=== PATIENT | male | born 1945 | race Caucasian/White ===

== ENCOUNTER → 2018-01-05 07:10 | Outpatient (CLI) | payer MEDICARE, OTHER, SELFPAY ==
[2018-01-05 11:24] LABS: Anion Gap 8 (5-15); BUN 9 mg/dL (7-18); Calcium,Total 9.1 mg/dL (8.5-10.1); Chloride 96 mmol/L (98-107); Cholesterol 220 mg/dL (200); Creatinine, Serum 0.64 mg/dL (0.70-1.30); EST Glomerular Filtration Rate 129 mL/min (>60); Est Glom Filt Rate - Afr Amer 156 mL/min (>60); Glucose 80 mg/dL (74-106); High Density Lipoprotein 94 mg/dL; PSA,Total - Annual Screen 0.79 ng/mL (0.00-4.00); Potassium 4.6 mmol/L (3.5-5.1); Sodium Level 133 mmol/L (136-145); Triglycerides 58 mg/dL; Very Low Density Lipoprotein 12 mg/dL (5-40)
== END ==
PROVIDERS: Family Provider Family Medicine; PCP Family Medicine; Visit Provider Family Medicine
DX: I10 Essential (primary) hypertension (principal); E78.00 Pure hypercholesterolemia, unspecified; Z12.5 Encounter for screening for malignant neoplasm of prostate
CPT/HCPCS: 36415; 80048; 80061; 84153; G0103

== ENCOUNTER 2018-11-07 17:57 | Emergency (ER) | payer MEDICARE, OTHER, SELFPAY ==
[2018-11-07 18:00] VITALS: BP 164/95; PULSE 84; RESP 18; TEMP 36.6; O2SAT 97; BMI 26.6
--- NOTE | 2018-11-07 18:48 | RAD_ITS ---
STUDY: X-RAY - RIGHT KNEE REASON FOR EXAM: Male, 73 years old. Pain, swelling TECHNIQUE: 4 view(s) of the knee. COMPARISON: None. FINDINGS: Normal visualized distal femur. Normal visualized proximal tibia and fibula. Normal proximal tibiofibular articulation. Mild spurring and narrowing at the medial femorotibial compartment. Mild spurring at the lateral femorotibial compartment. Normal patellofemoral articulation. There is a moderate suprapatellar effusion. The soft tissue structures are unremarkable. RAD/Knee 4 or More Views IMPRESSION: Effusion and degenerative changes of the knee. Electronically Signed: Guru Ronquillo DO at 19:17 EDT Tel [phone], Service support ,
--- NOTE | 2018-11-07 18:52 | US_ITS ---
STUDY: VENOUS DOPPLER ULTRASOUND - RIGHT LOWER EXTREMITY REASON FOR EXAM: Male, 73 years old. Pain TECHNIQUE: Ultrasound evaluation of the deep vein system to include vanegas-scale imaging and compression was performed. Vanegas-scale imaging and Doppler sonographic evaluation, including duplex spectral analysis and qualitative color flow sonography, was performed. COMPARISON: None. FINDINGS: Common Femoral Vein: Normal compression, spontaneity and augmentation. Normal color Doppler. Common Femoral Vein/Greater Saphenous Junction: Normal compression. Femoral Proximal: Normal compression. Femoral Middle: Normal compression, spontaneity and augmentation. Normal color Doppler. Femoral Distal: Normal compression. Popliteal Vein: Normal compression, spontaneity and augmentation. Normal color Doppler. Posterior Tibial Vein: Normal compression. Peroneal Vein: Normal compression. US/Venous Duplex Imag/Limited/Uni IMPRESSION: Normal venous Doppler ultrasound of the lower extremity. Electronically Signed: Guru Ronquillo DO at 19:55 EDT Tel [phone], Service support ,
[2018-11-07] MEDS: HYDROcodone Bitartrate/Apap 5/325 Tablet PO (19:02)
--- NOTE | 2018-11-07 19:46 | ED.DCSUM_ITS ---
- ER Visit Summary Date of Service: 11/07/18 Chief Complaint: Right knee pain History of Present Illness: The patient is a 73 M with chronic right knee pain secondary to arthritis. He states he wears a compression sleeve. Today pain worsened and his knee was more swollen. He does not remember a specific injury. Physical Examination: Blood pressure is 164/95, otherwise vitals unremarkable. Head neck examination is normal. Heart is regular rate and rhythm. Lung sounds are clear. Abdomen is soft nontender. Right lower extremity examination was mild edema and tenderness over the proximal lateral portion of the right knee. There is a superficial abrasion patient states his compression sleeve rubs. There is minimal tenderness at the joint line. He has normal range of motion. He has strong distal pulses and normal sensation. Test Results: Right knee x-rays reveal joint effusion and degenerative changes. Venous ultrasound shows no DVT. Emergency Department Course and Treatment: Patient was given 1 tab of [place] here. Test results discussed with patient and at bedside. Patient does not have evidence of an acute knee infection. He will be treated with a 4-day course of prednisone for inflammation and advised to follow with his primary care physician or orthopedics. Treatment Plan: [] Disposition: Discharge Impression: Right knee sprain This note was generated with [employer] dictation software. It may contain incorrect words, spelling, and punctuation that were not noted in review of the chart prior to signing ED Disposition - Plan for ED Patient: Disposition: Home or Assisted Living Instructions: ED Effusion Knee Prescriptions: predniSONE tablet 40 mg PO DAILY #10 tablet Referrals: Leif Herr MD [Primary Care Provider] - Saúl Perkins DO [STAFF PHYSICIAN] - 1-2 Weeks
[2018-11-07 19:57] VITALS: BP 161/86; PULSE 70; RESP 15; O2SAT 98
== END 2018-11-07 20:00 | disposition home or self-care (01) ==
PROVIDERS: Emergency Provider Emergency Medicine; Family Provider Family Medicine; PCP Family Medicine
DX: S83.91XA Sprain of unspecified site of right knee, initial encounter (principal); R60.0 Localized edema; M17.11 Unilateral primary osteoarthritis, right knee; I10 Essential (primary) hypertension; Z79.899 Other long term (current) drug therapy; X58.XXXA Exposure to other specified factors, initial encounter; Y93.9 Activity, unspecified; Y92.89 Other specified places as the place of occurrence of the external cause; Y99.8 Other external cause status
CPT/HCPCS: 73564; 93971; 99283

== ENCOUNTER → 2019-01-05 | Outpatient (CLI) | payer MEDICARE, OTHER, SELFPAY ==
[2019-01-05 10:44] LABS: Anion Gap 8 (5-15); BUN 8 mg/dL (7-18); BUN/Creat Ratio 12.3 RATIO (10-20); Calcium,Total 8.9 mg/dL (8.5-10.1); Chloride 97 mmol/L (98-107); Cholesterol 232 mg/dL (200); Creatinine, Serum 0.65 mg/dL (0.70-1.30); EST Glomerular Filtration Rate 127 mL/min (>60); Est Glom Filt Rate - Afr Amer 154 mL/min (>60); Glucose 87 mg/dL (74-106); High Density Lipoprotein 100 mg/dL; Potassium 4.9 mmol/L (3.5-5.1); Sodium Level 132 mmol/L (136-145); Triglycerides 78 mg/dL; Very Low Density Lipoprotein 16 mg/dL (5-40)
== END | disposition home or self-care (01) ==
LOC: MTLAB 06:56
PROVIDERS: Family Provider Family Medicine; PCP Family Medicine; Referring Provider Family Medicine; Visit Provider Family Medicine
DX: I10 Essential (primary) hypertension (principal); E78.00 Pure hypercholesterolemia, unspecified; Z12.5 Encounter for screening for malignant neoplasm of prostate
CPT/HCPCS: 36415; 80048; 80061; 84153; G0103

== ENCOUNTER → 2019-09-14 | Outpatient (CLI) | payer MEDICARE, OTHER, SELFPAY ==
[2019-09-14 09:19] LABS: Bacteria 0 SEEN /hpf (None Seen); Mucous, Urine 0 SEEN /hpf (<or=2+); Red Blood Cells-Urine 0 SEEN /hpf (0-5); Squamous Epithelial Cells - UA 0 SEEN /hpf (0-5)
[2019-09-14 10:27] LABS: Absolute Neutrophil Count 4.9 X10^3/uL (2.0-7.7); Basophil# 0.04 X10^3/uL; Basophil% 0.6 % (0-1); Eosinophils% 1.4 % (0-5); Hematocrit 37.9 % (40-54); Hemoglobin 13.3 g/dL (13.0-16.5); Lymphocyte % 20.2 % (19-41); Mean Corp Hgb Conc 35.1 g/dL (32-36); Mean Corpuscular Hgb 34.9 pg (27.0-32.0); Mean Corpuscular Volume 99.5 fL (80-94); Mean Platelet Vol. 10.2 fl (6.2-12.0); Monocyte# 0.49 X10^3/uL; Monocyte% 7.1 % (0-10); NRBC Flagged by Analyzer 0 % (0-5); Neutrophil # 4.86 X10^3/uL (2.7-7.7); Neutrophil % 70.1 % (47-70); Platelet Count 276 K/mm3 (150-450); RBC Distribution Width CV 12.2 % (11.6-14.6); RBC Distribution Width SD 44.5 fl (35.1-43.9); Red Blood Count 3.81 M/mm3 (4.6-6.2); White Blood Count 6.9 K/mm3 (4.4-11.0)
[2019-09-14 11:02] LABS: Vitamin B12 1256 pg/mL (211-911); Vitamin D,25 Hydroxy 49.8 ng/mL (29.95-100.01)
[2019-09-14 11:36] LABS: ALB/GLOB Ratio 1.1 RATIO (0.9-2.4); AST(SGOT) 17 U/L (15-37); Alanine Aminotransfer ALT/SGPT 24 U/L (16-61); Albumin, Serum 3.7 g/dL (3.2-5.0); Alkaline Phosphatase 65 U/L (45-117); Anion Gap 5 (5-15); BUN 10 mg/dL (7-18); BUN/Creat Ratio 10.8 RATIO (10-20); Calcium,Total 8.9 mg/dL (8.5-10.1); Chloride 101 mmol/L (98-107); Cholesterol 204 mg/dL (200); Creatinine, Serum 0.93 mg/dL (0.70-1.30); EST Glomerular Filtration Rate 84 mL/min (>60); Est Glom Filt Rate - Afr Amer 102 mL/min (>60); Globulin 3.5 g/dL (2.2-4.2); Glucose 92 mg/dL (74-106); High Density Lipoprotein 83 mg/dL; Protein, Total 7.2 g/dL (6.4-8.2); Sodium Level 132 mmol/L (136-145); Thyroid Stim Hormone (TSH) 2.55 uIU/mL (0.358-3.74); Triglycerides 87 mg/dL; Very Low Density Lipoprotein 17 mg/dL (5-40)
[2019-09-14 12:43] LABS: Color, Urine Yellow (Yellow); Glucose, Dipstick Normal (Normal); Ketone-Dipstick 5 mg/dl (Negative); Leukocyte Esterase-Dipstick 25 /ul (Negative); Nitrite-Dipstick Negative (Negative); Occult Blood-Urine Negative /ul (Negative); Protein-Dipstick 15 mg/dl (Negative); Specific Gravity, Urine 1.025 (1.002-1.030); Urine Bilirubin Dipstick Negative (Negative); Urine Clarity Sl. Cloudy (Clear); Urine Urobilinogen 1 mg/dl (Normal)
[2019-09-14 13:00] LABS: White Blood Cells 0-5 SEEN /hpf (0-5)
[2019-09-18 17:01] LABS: Vitamin B1, Thiamine 108.6 nmol/L (66.5-200.0)
== END | disposition home or self-care (01) ==
PROVIDERS: PCP Family Medicine; Referring Provider Family Medicine; Visit Provider Family Medicine
DX: E55.9 Vitamin D deficiency, unspecified (principal); I10 Essential (primary) hypertension; E78.00 Pure hypercholesterolemia, unspecified; F10.10 Alcohol abuse, uncomplicated
CPT/HCPCS: 36415; 80053; 80061; 81001; 82306; 82607; 82746; 84425; 84443; 85025

== ENCOUNTER → 2020-04-01 | Outpatient (CLI) | payer MEDICARE, OTHER, SELFPAY ==
[2020-04-01 10:44] LABS: Absolute Lymphocyte Count 1.54 X10^3/uL (0.83-4.51); Absolute Neutrophil Count 3.7 X10^3/uL (2.0-7.7); Basophil# 0.05 X10^3/uL; Basophil% 0.8 % (0-1); Eosinophil# 0.14 X10^3/uL; Eosinophils% 2.3 % (0-5); Hematocrit 39.5 % (40-54); Hemoglobin 13.6 g/dL (13.0-16.5); Lymphocyte # 1.54 X10^3/ul (4.0); Lymphocyte % 25.5 % (19-41); Mean Corp Hgb Conc 34.4 g/dL (32-36); Mean Corpuscular Hgb 34.3 pg (27.0-32.0); Mean Corpuscular Volume 99.5 fL (80-94); Mean Platelet Vol. 10.7 fl (6.2-12.0); Monocyte# 0.56 X10^3/uL; Monocyte% 9.3 % (0-10); NRBC Flagged by Analyzer 0 % (0-5); Neutrophil # 3.72 X10^3/uL (2.7-7.7); Neutrophil % 61.6 % (47-70); Platelet Count 283 K/mm3 (150-450); RBC Distribution Width CV 12.1 % (11.6-14.6); RBC Distribution Width SD 44.7 fl (35.1-43.9); Red Blood Count 3.97 M/mm3 (4.6-6.2)
[2020-04-01 10:49] LABS: Vitamin D,25 Hydroxy 43.8 ng/mL
[2020-04-01 11:05] LABS: ALB/GLOB Ratio 1.1 RATIO (0.9-2.4); AST(SGOT) 18 U/L (15-37); Alanine Aminotransfer ALT/SGPT 25 U/L (16-61); Albumin, Serum 3.6 g/dL (3.2-5.0); Alkaline Phosphatase 66 U/L (45-117); Anion Gap 6 (5-15); BUN 8 mg/dL (7-18); BUN/Creat Ratio 10.4 RATIO (10-20); Calcium,Total 8.5 mg/dL (8.5-10.1); Chloride 99 mmol/L (98-107); Creatinine, Serum 0.77 mg/dL (0.70-1.30); EST Glomerular Filtration Rate 104 mL/min (>60); Est Glom Filt Rate - Afr Amer 126 mL/min (>60); Globulin 3.4 g/dL (2.2-4.2); Glucose 75 mg/dL (74-106); Potassium 4.6 mmol/L (3.5-5.1); Sodium Level 132 mmol/L (136-145)
== END | disposition home or self-care (01) ==
LOC: MTLAB 07:33
PROVIDERS: PCP Family Medicine; Referring Provider Family Medicine; Visit Provider Family Medicine
DX: E55.9 Vitamin D deficiency, unspecified (principal); I10 Essential (primary) hypertension
CPT/HCPCS: 36415; 80053; 82306; 85025

== ENCOUNTER → 2020-09-18 07:22 | Outpatient (CLI) | payer MEDICARE, OTHER, SELFPAY ==
[2020-09-18 10:09] LABS: Absolute Lymphocyte Count 1.35 X10^3/uL (0.83-4.51); Absolute Neutrophil Count 2.9 X10^3/uL (2.0-7.7); Basophil# 0.05 X10^3/uL; Eosinophil# 0.09 X10^3/uL; Eosinophils% 1.9 % (0-5); Hematocrit 46.2 % (40-54); Hemoglobin 15.7 g/dL (13.0-16.5); Lymphocyte # 1.35 X10^3/ul (4.0); Lymphocyte % 27.8 % (19-41); Mean Corpuscular Volume 103.1 fL (80-94); Mean Platelet Vol. 11.4 fl (6.2-12.0); Monocyte# 0.42 X10^3/uL; Monocyte% 8.6 % (0-10); NRBC Flagged by Analyzer 0 % (0-5); Neutrophil # 2.93 X10^3/uL (2.7-7.7); Neutrophil % 60.3 % (47-70); Platelet Count 252 K/mm3 (150-450); RBC Distribution Width SD 49.8 fl (35.1-43.9); Red Blood Count 4.48 M/mm3 (4.6-6.2); White Blood Count 4.9 K/mm3 (4.4-11.0)
[2020-09-18 11:14] LABS: ALB/GLOB Ratio 1.1 RATIO (0.9-2.4); AST(SGOT) 19 U/L (15-37); Alanine Aminotransfer ALT/SGPT 28 U/L (16-61); Albumin, Serum 3.9 g/dL (3.2-5.0); Alkaline Phosphatase 67 U/L (45-117); Anion Gap 6 (5-15); BUN 8 mg/dL (7-18); BUN/Creat Ratio 10.1 RATIO (10-20); Chloride 103 mmol/L (98-107); Cholesterol 211 mg/dL (200); Creatinine, Serum 0.79 mg/dL (0.70-1.30); EST Glomerular Filtration Rate 101 mL/min (>60); Est Glom Filt Rate - Afr Amer 122 mL/min (>60); Globulin 3.5 g/dL (2.2-4.2); Glucose 83 mg/dL (74-106); High Density Lipoprotein 83 mg/dL; Potassium 4.1 mmol/L (3.5-5.1); Protein, Total 7.4 g/dL (6.4-8.2); Sodium Level 136 mmol/L (136-145); Triglycerides 80 mg/dL; Very Low Density Lipoprotein 16 mg/dL (5-40)
== END ==
PROVIDERS: PCP Family Medicine; Referring Provider Registered Nurse; Visit Provider Registered Nurse
DX: Z00.00 Encounter for general adult medical examination without abnormal findings (principal)
CPT/HCPCS: 36415; 80053; 80061; 84153; 85025; G0103

== ENCOUNTER → 2021-02-10 11:30 | Outpatient (CLI) | payer MEDICARE, OTHER, SELFPAY ==
--- NOTE | 2021-02-10 11:34 | RAD_ITS ---
STUDY: X-RAY - PELVIS AND RIGHT HIP REASON FOR EXAM: Right hip pain, recent right hip injury from a fall. TECHNIQUE: 2 views of the pelvis and hip. COMPARISON: None. FINDINGS: There are small pelvic phleboliths. Normal bilateral iliac wings, sacroiliac joints and visualized sacrum. There is a subtle nondisplaced fracture of the right inferior pubic ramus. Normal pubic symphysis. Normal bilateral ischial tuberosities. Normal visualized femoral head. Normal acetabulum. There is mild joint space narrowing of the superior medial right hip joint. RAD/HIP, UNI W/ Pelvis 2-3 Views IMPRESSION: Subtle nondisplaced fracture of the right inferior pubic ramus. Mild right hip arthrosis. Electronically Signed: Mando Saldana MD at 12:09 EDT Tel , Service support ,
== END ==
PROVIDERS: PCP Family Medicine; Referring Provider Family Medicine; Visit Provider Family Medicine
DX: M25.551 Pain in right hip (principal)
CPT/HCPCS: 73502

== ENCOUNTER → 2021-03-23 09:35 | Outpatient (CLI) | payer MEDICARE, OTHER, SELFPAY ==
[2021-02-18 11:56] VITALS: BMI 25.8
--- NOTE | 2021-03-23 09:40 | RAD_ITS ---
PROCEDURE: Fluoroscopic guided Hip Injection DATE: 03/23/2021. INDICATION: Male, 75 years old. Chronic left hip pain. PHYSICIAN: Remigio Palumbo M.D. MEDICATIONS: 40 mg of KENALOG and 4 cc of 1% LIDOCAINE. 2% lidocaine administered subcutaneously for local anesthesia. ACCESS SITE: Left hip. NEEDLE: 22-gauge spinal needle. FLUOROSCOPY TIME (if supplied): (0:44) minutes/seconds FINDINGS: The risks, benefits, and alternatives to the procedure were explained to the patient. The specific risks of bleeding, infection, and neurovascular injury were detailed and accepted. Witnessed informed consent was obtained. A 22-gauge spinal needle was positioned under radiographic fluoroscopic localization. Approximately 2 cc of ISOVUE-300 instilled for localization purposes. Medication was then injected. The patient tolerated the procedure well without any immediate complications. RAD/Inj/Asp Thomas Jt Should/Hip/Knee IMPRESSION: 1. Successful fluoroscopic guided hip injection. Electronically Signed: Remigio Palumbo MD at 11:19 EDT , Service support ,
[2021-03-23] MEDS: Lidocaine 2% (5ml sdv) 5 ML VIAL.MPF INFILT (10:00)
== END ==
PROVIDERS: PCP Family Medicine; Referring Provider Family Medicine; Visit Provider Family Medicine
DX: M16.12 Unilateral primary osteoarthritis, left hip (principal)
CPT/HCPCS: 20610; 77002

== ENCOUNTER → 2022-04-08 | Outpatient (CLI) | payer MEDICARE, OTHER, SELFPAY ==
[2022-04-08 10:19] LABS: Absolute Lymphocyte Count 0.94 X10^3/uL (0.83-4.51); Absolute Neutrophil Count 3.7 X10^3/uL (2.0-7.7); Basophil# 0.04 X10^3/uL; Basophil% 0.8 % (0-1); Eosinophil# 0.08 X10^3/uL; Eosinophils% 1.5 % (0-5); Hematocrit 39.6 % (40-54); Hemoglobin 14.1 g/dL (13.0-16.5); Lymphocyte # 0.94 X10^3/ul (0.83-4.51); Mean Corp Hgb Conc 35.6 g/dL (32-36); Mean Corpuscular Hgb 36.2 pg (27.0-32.0); Mean Corpuscular Volume 101.5 fL (80-94); Mean Platelet Vol. 11.1 fl (6.2-12.0); Monocyte# 0.45 X10^3/uL; Monocyte% 8.6 % (0-10); NRBC Flagged by Analyzer 0 % (0-5); Neutrophil # 3.68 X10^3/uL (2.7-7.7); Neutrophil % 70.5 % (47-70); Platelet Count 244 K/mm3 (150-450); RBC Distribution Width CV 12.7 % (11.6-14.6); RBC Distribution Width SD 47.4 fl (35.1-43.9); White Blood Count 5.2 K/mm3 (4.4-11.0)
[2022-04-08 10:37] LABS: Vitamin D,25 Hydroxy 49.4 ng/mL
[2022-04-08 11:31] LABS: AST(SGOT) 22 U/L (15-37); Alanine Aminotransfer ALT/SGPT 25 U/L (16-61); Albumin, Serum 3.5 g/dL (3.2-5.0); Alkaline Phosphatase 55 U/L (45-117); Anion Gap 7 (5-15); BUN 8 mg/dL (7-18); BUN/Creat Ratio 11.1 RATIO (10-20); Calcium,Total 8.8 mg/dL (8.5-10.1); Chloride 98 mmol/L (98-107); Cholesterol 201 mg/dL (200); Creatinine, Serum 0.72 mg/dL (0.70-1.30); EST Glomerular Filtration Rate 112 mL/min (>60); Est Glom Filt Rate - Afr Amer 135 mL/min (>60); Globulin 3.4 g/dL (2.2-4.2); Glucose 75 mg/dL (74-106); High Density Lipoprotein 89 mg/dL; Potassium 4.6 mmol/L (3.5-5.1); Protein, Total 6.9 g/dL (6.4-8.2); Sodium Level 132 mmol/L (136-145); Thyroid Stim Hormone (TSH) 1.52 uIU/mL (0.358-3.74); Triglycerides 58 mg/dL; Very Low Density Lipoprotein 12 mg/dL (5-40)
[2022-04-08 11:41] LABS: Bacteria 0 SEEN /hpf (None Seen); Mucous, Urine 0 SEEN /hpf (<or=2+); Red Blood Cells-Urine 0 SEEN /hpf (0-5); Squamous Epithelial Cells - UA 0 SEEN /hpf (0-5)
[2022-04-08 15:06] LABS: Color, Urine Yellow (Yellow); Glucose, Dipstick Normal (Normal); Ketone-Dipstick Negative (Negative); Leukocyte Esterase-Dipstick 25 /ul (Negative); Nitrite-Dipstick Negative (Negative); Occult Blood-Urine Negative /ul (Negative); Protein-Dipstick Negative (Negative); Urine Bilirubin Dipstick Negative (Negative); Urine Clarity Clear (Clear); Urine Urobilinogen Normal (Normal)
[2022-04-08 15:15] LABS: White Blood Cells 0-5 SEEN /hpf (0-5)
[2022-04-12 21:00] LABS: Vitamin B1, Thiamine 140.1 nmol/L (66.5-200.0)
== END | disposition home or self-care (01) ==
LOC: MFPLAB 08:19
PROVIDERS: PCP Family Medicine; Visit Provider Family Medicine
DX: I10 Essential (primary) hypertension (principal); F10.10 Alcohol abuse, uncomplicated; E55.9 Vitamin D deficiency, unspecified
CPT/HCPCS: 36415; 80053; 80061; 81001; 82306; 82746; 84425; 84443; 85025

== ENCOUNTER → 2023-01-14 | Outpatient (CLI) | payer MEDICARE, OTHER, SELFPAY ==
[2023-01-14 11:19] LABS: Absolute Lymphocyte Count 0.88 X10^3/uL (0.83-4.51); Absolute Neutrophil Count 4.7 X10^3/uL (2.0-7.7); Basophil# 0.03 X10^3/uL; Basophil% 0.5 % (0-1); Eosinophil# 0.08 X10^3/uL; Eosinophils% 1.3 % (0-5); Hematocrit 37.6 % (40-54); Lymphocyte # 0.88 X10^3/ul (0.83-4.51); Lymphocyte % 14.2 % (19-41); Mean Corp Hgb Conc 34.6 g/dL (32-36); Mean Corpuscular Hgb 36.6 pg (27.0-32.0); Mean Corpuscular Volume 105.9 fL (80-94); Mean Platelet Vol. 11.7 fl (6.2-12.0); Monocyte# 0.45 X10^3/uL; Monocyte% 7.3 % (0-10); NRBC Flagged by Analyzer 0 % (0-5); Neutrophil # 4.72 X10^3/uL (2.7-7.7); Neutrophil % 76.2 % (47-70); Platelet Count 217 K/mm3 (150-450); RBC Distribution Width CV 13.1 % (11.6-14.6); RBC Distribution Width SD 50.5 fl (35.1-43.9); Red Blood Count 3.55 M/mm3 (4.6-6.2); White Blood Count 6.2 K/mm3 (4.4-11.0)
[2023-01-14 11:38] LABS: Vitamin D,25 Hydroxy 79.8 ng/mL
[2023-01-14 11:45] LABS: Bacteria 0 SEEN /hpf (None Seen); Red Blood Cells-Urine 0 SEEN /hpf (0-5); Squamous Epithelial Cells - UA 0 SEEN /hpf (0-5)
[2023-01-14 11:48] LABS: ALB/GLOB Ratio 1.1 RATIO (0.9-2.4); AST(SGOT) 15 U/L (15-37); Alanine Aminotransfer ALT/SGPT 15 U/L (16-61); Albumin, Serum 3.4 g/dL (3.2-5.0); Alkaline Phosphatase 63 U/L (45-117); Anion Gap 7 (5-15); BUN 8 mg/dL (7-18); BUN/Creat Ratio 11.6 RATIO (10-20); Calcium,Total 8.7 mg/dL (8.5-10.1); Chloride 101 mmol/L (98-107); Cholesterol 174 mg/dL (200); Creatinine, Serum 0.69 mg/dL (0.70-1.30); EST Glomerular Filtration Rate 117 mL/min (>60); Est Glom Filt Rate - Afr Amer 142 mL/min (>60); Globulin 3.2 g/dL (2.2-4.2); Glucose 85 mg/dL (74-106); High Density Lipoprotein 84 mg/dL; Potassium 4.4 mmol/L (3.5-5.1); Protein, Total 6.6 g/dL (6.4-8.2); Sodium Level 134 mmol/L (136-145); Thyroid Stim Hormone (TSH) 1.77 uIU/mL (0.358-3.74); Triglycerides 58 mg/dL; Very Low Density Lipoprotein 12 mg/dL (5-40)
[2023-01-14 15:52] LABS: Color, Urine Yellow (Yellow); Glucose, Dipstick Normal (Normal); Ketone-Dipstick 5 mg/dl (Negative); Leukocyte Esterase-Dipstick 25 /ul (Negative); Nitrite-Dipstick Negative (Negative); Occult Blood-Urine Negative /ul (Negative); Protein-Dipstick 15 mg/dl (Negative); Urine Bilirubin Dipstick Negative (Negative); Urine Clarity Clear (Clear); Urine Urobilinogen 1 mg/dl (Normal)
[2023-01-14 16:10] LABS: Hyaline Cast 0-5 SEEN /lpf (0-5); Mucous, Urine RARE /hpf (<or=2+); White Blood Cells 0-5 SEEN /hpf (0-5)
== END | disposition home or self-care (01) ==
LOC: MFPLAB 10:01
PROVIDERS: PCP Family Medicine; Visit Provider Family Medicine
DX: I10 Essential (primary) hypertension (principal); E55.9 Vitamin D deficiency, unspecified
CPT/HCPCS: 36415; 80053; 80061; 81001; 82306; 84443; 85025

== ENCOUNTER → 2023-07-14 | Outpatient (CLI) | payer MEDICARE, OTHER, SELFPAY ==
--- NOTE | 2023-07-14 09:37 | RAD_ITS ---
STUDY: X-RAY - LEFT KNEE REASON FOR EXAM: Male, 77 years old. BILATERAL KNEE PAIN TECHNIQUE: 3 view(s) of the knee. COMPARISON: None. FINDINGS: Normal visualized distal femur. Normal visualized proximal tibia and fibula. Normal proximal tibiofibular articulation. There is no demonstrated fracture. There is severe degenerative arthrosis of the medial femorotibial compartment with severe joint space narrowing. Normal lateral femorotibial compartment. There is mild degenerative arthrosis of the patellofemoral articulation. There is no demonstrated joint effusion. The soft tissue structures are unremarkable. RAD/Knee 3 Views IMPRESSION: No acute fracture or dislocation. Severe medial compartment degenerative changes. Electronically Signed: Galindo Baron MD at 19:45 EST ,
--- NOTE | 2023-07-14 09:38 | RAD_ITS ---
STUDY: X-RAY - RIGHT KNEE REASON FOR EXAM: Male, 77 years old. BILATERAL KNEE PAIN TECHNIQUE: 3 view(s) of the knee. COMPARISON: 11/07/2018. FINDINGS: Normal visualized distal femur. Normal visualized proximal tibia and fibula. Normal proximal tibiofibular articulation. There is no demonstrated fracture. There is severe degenerative arthrosis of the medial femorotibial compartment with severe joint space narrowing. Findings have worsened since prior study. Normal lateral femorotibial compartment. There is moderate degenerative arthrosis of the patellofemoral articulation. There is no demonstrated joint effusion. The soft tissue structures are unremarkable. RAD/Knee 3 Views IMPRESSION: Severe medial compartment degenerative disease worse than on prior study. Electronically Signed: Galindo Baron MD at 19:50 EST ,
== END | disposition home or self-care (01) ==
PROVIDERS: PCP Family Medicine; Referring Provider Family Medicine; Visit Provider Family Medicine
DX: M25.561 Pain in right knee (principal); M25.562 Pain in left knee
CPT/HCPCS: 73562

== ENCOUNTER → 2023-07-15 | Outpatient (CLI) | payer MEDICARE, OTHER, SELFPAY ==
[2023-07-15 07:25] LABS: Bacteria 0 SEEN /hpf (None Seen); Mucous, Urine 0 SEEN /hpf (<or=2+); Red Blood Cells-Urine 0 SEEN /hpf (0-5)
[2023-07-15 10:39] LABS: Vitamin B12 496 pg/mL (211-911)
[2023-07-15 11:36] LABS: ALB/GLOB Ratio 1.1 RATIO (0.9-2.4); AST(SGOT) 15 U/L (15-37); Alanine Aminotransfer ALT/SGPT 18 U/L (16-61); Albumin, Serum 3.6 g/dL (3.2-5.0); Alkaline Phosphatase 65 U/L (45-117); Anion Gap 6 (5-15); BUN 10 mg/dL (7-18); BUN/Creat Ratio 15.6 RATIO (10-20); Chloride 104 mmol/L (98-107); Cholesterol 185 mg/dL (200); Creatinine, Serum 0.64 mg/dL (0.70-1.30); EST Glomerular Filtration Rate 127 mL/min (>60); Est Glom Filt Rate - Afr Amer 154 mL/min (>60); Globulin 3.3 g/dL (2.2-4.2); Glucose 90 mg/dL (74-106); High Density Lipoprotein 85 mg/dL; Potassium 4.4 mmol/L (3.5-5.1); Protein, Total 6.9 g/dL (6.4-8.2); Sodium Level 138 mmol/L (136-145); Triglycerides 43 mg/dL; Very Low Density Lipoprotein 9 mg/dL (5-40)
[2023-07-15 12:55] LABS: Color, Urine Yellow (Yellow); Glucose, Dipstick Normal (Normal); Ketone-Dipstick 5 mg/dl (Negative); Leukocyte Esterase-Dipstick 100 /ul (Negative); Nitrite-Dipstick Negative (Negative); Occult Blood-Urine Negative /ul (Negative); Protein-Dipstick 15 mg/dl (Negative); Specific Gravity, Urine 1.015 (1.002-1.030); Urine Clarity Sl. Cloudy (Clear); Urine Urobilinogen 1 mg/dl (Normal)
[2023-07-15 12:57] LABS: Urine Bilirubin Dipstick 1 mg/dL (Negative)
[2023-07-15 13:06] LABS: Squamous Epithelial Cells - UA 0-5 SEEN /hpf (0-5); White Blood Cells 10-25 SEEN /hpf (0-5)
[2023-07-20 11:08] LABS: Vitamin B1, Thiamine 130.9 nmol/L (66.5-200.0)
== END | disposition home or self-care (01) ==
LOC: MTLAB 07:09
PROVIDERS: PCP Family Medicine; Referring Provider Family Medicine; Visit Provider Family Medicine
DX: E55.9 Vitamin D deficiency, unspecified (principal); F10.20 Alcohol dependence, uncomplicated; I10 Essential (primary) hypertension
CPT/HCPCS: 36415; 80053; 80061; 81001; 82306; 82607; 82746; 84425

== ENCOUNTER → 2024-07-12 | Outpatient (CLI) | payer MEDICARE, OTHER, SELFPAY ==
[2024-07-12 10:15] LABS: Absolute Lymphocyte Count 0.89 X10^3/uL (0.83-4.51); Absolute Neutrophil Count 3.4 X10^3/uL (2.0-7.7); Basophil# 0.05 X10^3/uL; Eosinophil# 0.08 X10^3/uL; Eosinophils% 1.7 % (0-5); Hematocrit 38.1 % (40-54); Hemoglobin 12.8 g/dL (13.0-16.5); Lymphocyte # 0.89 X10^3/ul (0.83-4.51); Lymphocyte % 18.5 % (19-41); Mean Corp Hgb Conc 33.6 g/dL (32-36); Mean Corpuscular Hgb 34.5 pg (27.0-32.0); Mean Corpuscular Volume 102.7 fL (80-94); Mean Platelet Vol. 10.7 fl (6.2-12.0); Monocyte# 0.41 X10^3/uL; Monocyte% 8.5 % (0-10); NRBC Flagged by Analyzer 0 % (0-5); Neutrophil # 3.38 X10^3/uL (2.7-7.7); Neutrophil % 70.1 % (47-70); Platelet Count 242 K/mm3 (150-450); RBC Distribution Width CV 13.1 % (11.6-14.6); RBC Distribution Width SD 49.3 fl (35.1-43.9); Red Blood Count 3.71 M/mm3 (4.6-6.2); White Blood Count 4.8 K/mm3 (4.4-11.0)
[2024-07-12 10:44] LABS: Vitamin D,25 Hydroxy 73.1 ng/mL
[2024-07-12 10:46] LABS: ALB/GLOB Ratio 1.2 RATIO (0.9-2.4); AST(SGOT) 17 U/L (15-37); Alanine Aminotransfer ALT/SGPT 19 U/L (16-61); Albumin, Serum 3.5 g/dL (3.2-5.0); Alkaline Phosphatase 59 U/L (45-117); Anion Gap 6 (5-15); BUN 8 mg/dL (7-18); BUN/Creat Ratio 9.4 RATIO (10-20); Calcium,Total 8.9 mg/dL (8.5-10.1); Chloride 102 mmol/L (98-107); Cholesterol 172 mg/dL (200); Creatinine, Serum 0.85 mg/dL (0.70-1.30); EST Glomerular Filtration Rate 92 mL/min (>60); Est Glom Filt Rate - Afr Amer 111 mL/min (>60); Glucose 65 mg/dL (74-106); High Density Lipoprotein 82 mg/dL; Magnesium 1.8 mg/dL (1.6-2.6); Potassium 4.5 mmol/L (3.5-5.1); Protein, Total 6.5 g/dL (6.4-8.2); Sodium Level 136 mmol/L (136-145); Triglycerides 52 mg/dL; Very Low Density Lipoprotein 10 mg/dL (5-40)
[2024-07-16 15:16] LABS: Ferritin 40 ng/mL (26-388); Iron 92 ug/dL (65-175); Iron Binding Capacity,Total 376 ug/dL (250-450); PERCENT IRON SATURATION 24.5 % (15.0-55.0)
== END | disposition home or self-care (01) ==
LOC: MFPLAB 09:28
PROVIDERS: PCP Family Medicine; Visit Provider Family Medicine
DX: D64.9 Anemia, unspecified (principal); I10 Essential (primary) hypertension; E55.9 Vitamin D deficiency, unspecified
CPT/HCPCS: 36415; 80053; 80061; 82306; 82728; 83540; 83550; 83735; 84443; 85025

== ENCOUNTER 2024-10-17 08:50 | Inpatient (IN) | payer MEDICARE, OTHER, SELFPAY ==
[2024-10-17] VITALS (7 sets, daily range): BP systolic 120–138; BP diastolic 71–86; PULSE 77–96; RESP 16–18; TEMP 36.6–37.8; O2SAT 95–99; BMI 53.4; BMI 22.3
--- NOTE | 2024-10-17 09:14 | CT_ITS ---
PROCEDURE: BRAIN/HEAD WITHOUT CONTRAST (CTBR), 10/17/2024 REASON FOR EXAM: INJURY COMPARISON: None TECHNIQUE: CT head was performed without IV contrast. Multiplanar reformats were generated. IV Contrast: None. FINDINGS: Cerebrum: No visible intracranial hemorrhage or mass. Mild atrophy and patchy supratentorial white matter hypodensities, nonspecific but compatible with chronic microvascular ischemic changes. Cerebellum/brainstem: Unremarkable. Note slight limitation due to beam hardening artifact. Ventricles/extra-axial spaces: Unremarkable. Paranasal sinuses/mastoid air cells: Left mastoidectomy. Scalp/calvarium: Unremarkable. Other: Intracranial atherosclerosis. Presumed cerumen in the external auditory canals bilaterally. CT/Brain/Head without Contrast IMPRESSION: 1. No visible acute intracranial findings. 2. Additional description as above. Reading Location: [id number]
--- NOTE | 2024-10-17 09:15 | EKG12_ITS ---
Test Reason : Blood Pressure : */* mmHG Vent. Rate : 109 BPM Atrial Rate : * BPM P-R Int : * ms QRS Dur : 88 ms QT Int : 326 ms P-R-T Axes : * -17 154 degrees QTcB Int : 439 ms Atrial fibrillation with rapid ventricular response Nonspecific ST and T wave abnormality Abnormal ECG Confirmed by NOAH LANDEROS, ALFA ([id number]), film editor ABRIL BARR ([id number]) on 10/22/2024 11:11:02 AM Referred By: MAURICE Confirmed By: ALFA ZAMORA MD
--- NOTE | 2024-10-17 09:20 | EX.ED.DYSGE1 ---
HPI History of Present Illness Chief Complaint: Syncope Informant: patient and family Narrative Narrative: 79-year-old male presenting to the emergency room with syncope. Patient notes a history of hypertension on lisinopril. He states for the past 3 days he has had a cough with some rhinorrhea. He states he was tested negative for COVID and influenza yesterday. He states that last evening he began to feel some lightheadedness. During the night (unsure of the exact time) he got up to use the bathroom and passed out. He is unsure if he fully lost consciousness but he does remember hitting his head and his glasses coming off. Patient denies any known coronary artery disease or cardiac history other than the hypertension. Family notes that he does drink a significant amount of beer daily. He denies any vomiting but does note light diarrhea which is chronic. Family notes that he is at home with his who has influenza A. [facility] Medical History (Updated 10/17/24 @ 11:[address] Bryon Quijano DO) Afib Acoustic neuroma Arthritis Hypertension Home Medications ?Medication ?Instructions ?Recorded ?Last Taken ?Type glucosamine HCl 500 mg tablet 500 mg PO DAILY 02/18/21 Unknown History multivitamin 1 tab PO DAILY 02/18/21 Unknown History lisinopril 10 mg tablet 10 mg PO QDAY 10/16/24 Unknown History Allergy/AdvReac Type Severity Reaction Status Date / Time Penicillins (PCN) Allergy Shortness Verified 10/17/24 08:54 of breath Social History Smoking Status: Never smoker alcohol intake: current alcohol intake frequency: 3 or more drinks per day [facility] ED Constitutional Constitutional ED: Denies chills, fever(s) or weight loss Eyes Eyes: Denies change in vision or diplopia ENT ENT ED: Reports rhinorrhea; Denies ear pain or sore throat Cardiovascular Cardiovascular: Reports other Details: Syncope ; Denies chest pain, orthopnea, palpitations or racing heartbeat Respiratory/Chest Respiratory/Chest: Reports cough; Denies dyspnea or orthopnea Gastrointestinal Gastrointestinal: Denies abdominal pain, diarrhea, nausea or vomiting Genitourinary Genitourinary ED: Denies dysuria, hematuria or urinary frequency Musculoskeletal Musculoskeletal: Denies arthralgias or myalgias Integumentary Denies abscess or rash Neurologic Neurologic: Denies headache(s) or weakness Psychiatric Psychiatric: Denies anxiety, depression, suicidal ideation or suicidal thoughts Endocrine Endocrinology: Denies polydipsia, polyphagia or polyuria Allergic/Immunologic Allergic/Immunologic ED: Denies mouth swelling, tongue swelling or urticaria EXAM Physical Exam Const Vital Signs: 10/17/24 08:51 10/17/24 09:37 10/17/24 10:19 Temperature 98.1 F Temperature Source Temporal Pulse Rate 82 91 Respiratory Rate 16 Respiratory Effort Normal Non-Labored Respiratory Pattern Normal Blood Pressure 134/72 H 125/71 H Blood Pressure Mean 92 89 Pulse Ox 96 95 Oxygen Delivery Method Room Air 10/17/24 11:00 10/17/24 12:00 Temperature Temperature Source Pulse Rate 90 96 Respiratory Rate 16 18 Respiratory Effort Respiratory Pattern Blood Pressure 120/73 138/76 H Blood Pressure Mean 85 93 Pulse Ox 97 97 Oxygen Delivery Method Positive well nourished and well developed General Appearance ED: well developed and NAD HEENT Reports normocephalic, head/scalp atraumatic and moist mucous membranes Eyes PERRL and EOMs intact bilaterally Neck no lymphadenopathy, supple and no JVD Resp normal respiratory effort and clear to auscultation bilaterally Cardio no murmurs Rate: tachycardic Rhythm: abnormal rhythm irregularly irregular GI normal to inspection, nondistended, normoactive bowel sounds and non-tender Palpation: soft Back/Spine no CVA tenderness and normal ROM Extremity normal to inspection General Extremety ED: Negative for edema General Extremity: Negative for edema Neuro oriented x3 and CN's II-XII intact bilaterally Sensorium / Orientation: alert Motor Exam: strength 5/5 throughout Psych mental status grossly normal Mood & Affect: Negative for depressed or tearful Skin no rashes or lesions noted and no wounds MDM MDM MDM Narrative Medical decision making narrative: Differential diagnosis includes but not limited to cardiac dysrhythmia dehydration electrolyte abnormalities anemia acute coronary syndrome thyroid disorder intracranial hemorrhage skull fracture EKG confirms atrial fibrillation with RVR at a rate of 109 bpm. White count of 5.9 hemoglobin 13.4 platelet count is 196. Normal coags. Potassium 4.2 sodium is 126 which I presume is related to beer ingestion. TSH is normal 2.50 troponin 28 alcohol is negative magnesium 1.6 glucose 118. My independent interpretation of the chest x-ray is chronic changes no acute findings. He is influenza A positive. Patient received an IV dose of Cardizem which slowed his heart rate down into the 90s. He stayed there for a while and I gave him oral diltiazem. When he got up to use the bathroom heart rate increased to the 130s and it starting to come back down currently about 99 bpm. I believe he is out of the window for Tamiflu. Plan of care will be admission for rate control echocardiogram influenza management. History & Record Review Discussion w/independent historian: Patient and Family Lab Data Attestation: I reviewed the patient's lab results. Labs: Laboratory Results - last 24 hr 10/17/24 10/17/24 09:19 09:35 WBC 5.9 RBC 3.84 L Hgb 13.4 Hct 37.3 L MCV 97.1 H MCH 34.9 H MCHC 35.9 RDW Std Deviation 46.7 H RDW Coeff of Fran 13.1 Plt Count 196 MPV 10.0 Immature Gran % (Auto) 0.700 Neut % (Auto) 86.4 H Lymph % (Auto) 5.1 L [place] % (Auto) 7.5 Eos % (Auto) 0.0 Baso % (Auto) 0.3 Absolute Neuts (auto) 5.1 Absolute Lymphs (auto) 0.30 L Nucleated RBC % 0 PT 14.3 INR 1.1 APTT 26.0 Sodium 126 L Potassium 4.2 Chloride 90 L Carbon Dioxide 21.7 Anion Gap 14 BUN 12 Creatinine 0.95 Estim Creat Clear Calc 84.77 Est GFR (MDRD) Non-Af 80 BUN/Creatinine Ratio 12.3 Glucose 118 H Calcium 8.9 Magnesium 1.6 Troponin T High Sens 28 H TSH 2.500 Ethyl Alcohol < 10.1 Radiography Diagnostic Testing: Clinical Impression(s) from Imaging Studies Brain CT 10/17/24 09:14 IMPRESSION: 1. No visible acute intracranial findings. 2. Additional description as above. Reading Location: [id number] Chest X-Ray 10/17/24 10:02 IMPRESSION: No acute cardiopulmonary process. Reading [facility] E[facility] Initial EKG: Attestation: I personally reviewed and interpreted this EKG as follows: Comments: Atrial fibrillation with RVR ventricular rate 109 bpm. Management Discussion w/another healthcare provider: Hospitalist (Dr Zarate) and Supervisor [employer] (Dr Perez) Discharge Plan Dx/Rx/DC Orders Clinical Impression: Atrial fibrillation, new onset, Syncope, Influenza A, Hyponatremia Disposition Disposition: Acute Care Hospital [facility]
[2024-10-17 09:30] LABS: Absolute Neutrophil Count 5.1 X10^3/uL (2.0-7.7); Basophil# 0.02 X10^3/uL; Basophil% 0.3 % (0-1); Hematocrit 37.3 % (40-54); Hemoglobin 13.4 g/dL (13.0-16.5); Lymphocyte % 5.1 % (19-41); Mean Corp Hgb Conc 35.9 g/dL (32-36); Mean Corpuscular Hgb 34.9 pg (27.0-32.0); Mean Corpuscular Volume 97.1 fL (80-94); Monocyte# 0.44 X10^3/uL; Monocyte% 7.5 % (0-10); NRBC Flagged by Analyzer 0 % (0-5); Neutrophil # 5.05 X10^3/uL (2.7-7.7); Neutrophil % 86.4 % (47-70); POSITIVE DIFFERENTIAL YES; Platelet Count 196 K/mm3 (150-450); RBC Distribution Width CV 13.1 % (11.6-14.6); RBC Distribution Width SD 46.7 fl (35.1-43.9); Red Blood Count 3.84 M/mm3 (4.6-6.2); White Blood Count 5.9 K/mm3 (4.4-11.0)
[2024-10-17] MEDS: dilTIAZem 25 MG/5 ML Vial 10 MG IV BOLUS (09:35)
[2024-10-17 09:43] LABS: International Normalized Ratio 1.1; Prothrombin Time (Protime)PT. 14.3 SECONDS (11.7-14.9)
--- NOTE | 2024-10-17 10:02 | RAD_ITS ---
EXAM: XR Chest, 1 View CLINICAL INDICATION: SYNCOPE TECHNIQUE: Frontal view of the chest. COMPARISON: No relevant prior studies available. FINDINGS: LUNGS AND PLEURAL SPACES: Unremarkable. No consolidation. No pneumothorax. HEART: Unremarkable. No cardiomegaly. MEDIASTINUM: Unremarkable. Normal mediastinal contour. BONES/JOINTS: Unremarkable. No acute fracture. RAD/Chest 1 View (Portable) IMPRESSION: No acute cardiopulmonary process. Reading Location: [facility]
[2024-10-17 10:07] LABS: Magnesium 1.6 mg/dL (1.5-2.2)
[2024-10-17 10:10] LABS: Alcohol, Blood (Medical)-Serum < 10.1 mg/dL (<=10.0)
[2024-10-17 10:11] LABS: Anion Gap 14 (5-15); BUN 12 mg/dL (4-19); BUN/Creat Ratio 12.3 RATIO (10-20); Calcium,Total 8.9 mg/dL (7.6-11.0); Carbon Dioxide 21.7 mmol/L (21.0-32.0); Chloride 90 mmol/L (98-108); Creatinine, Serum 0.95 mg/dL (0.70-1.20); EST Glomerular Filtration Rate 80 (>60); Estimated Creatinine Clearance 84.77 ml/min (50-250); Glucose 118 mg/dL (70-99); Potassium 4.2 mmol/L (3.3-5.1); Sodium Level 126 mmol/L (133-145)
[2024-10-17 10:22] LABS: Troponin T High Sensitivity 28 ng/L (<=22)
[2024-10-17] MEDS: APIXABAN 5 MG TABLET PO ×2 (11:49→21:39)
[2024-10-17] MEDS: dilTIAZem 60 MG Tablet PO ×3 (11:49→21:40)
[2024-10-17 13:14] LABS: Troponin T High Sens 2 HR 32 ng/L (<=22)
--- NOTE | 2024-10-17 14:37 | ECHOD_ITS ---
Reason For Study Reason For Study: Afib/Flutter Procedure This was a 2D Doppler, Color Flow transthoracic echocardiogram. The study was technically difficult. Exam performed portable in patient room. Left Ventricle Normal LV size. The estimated ejection fraction is 60 %. No evidence for diastolic dysfunction. No regional wall motion abnormalities noted. Right Ventricle Normal RV size. Normal systolic function. Atria The left atrium is mildly enlarged. Normal right atrium. No doppler evidence for ASD. Mitral Valve There is moderate to severe mitral annular calcification. There is no mitral valve stenosis. Mild (1+) mitral valve insufficiency. Tricuspid Valve There is no tricuspid stenosis. Trivial tricuspid valve insufficiency. Pulmonary artery systolic pressure is 35 mmHg. Aortic Valve Trisinus/trileaflet aortic valve. There is no aortic stenosis. No aortic valve insufficiency. Pulmonic Valve There is no pulmonic valvular stenosis. Trivial pulmonic valve insufficiency. Great Vessels Normal sized aortic root. Pericardium/Pleural No pericardial effusion. MMode/2D Measurements & Calculations LVIDd: 5.4 cm IVSd: 1.3 cm Ao root diam: 3.7 cm LVIDs: 4.1 cm LVPWd: 0.74 cm RVDd: 4.0 cm FS: 24.7 % LAV(MOD-bp): 67.7 ml LA A4 area: 22.6 cm2 LA dimension(2D): 3.3 cm LAV(MOD-bp) Indexed: 37.8 ml/m2 LAV(MOD-sp2): 64.3 ml LAV(MOD-sp4): 70.5 ml TAPSE: 1.9 cm RA A4 area: 19.1 cm2 Time Measurements MV dec time: 0.26 sec Doppler Measurements & Calculations MV E max aleks: 71.0 cm/sec Lat Peak E' Aleks: 11.0 cm/sec Med Peak E' Aleks: 10.8 cm/sec MV A max aleks: 95.5 cm/sec E/E' lat: 6.5 E/E' med: 6.6 MV E/A: 0.74 MV V2 max: 108.9 cm/sec MV P1/2t max aleks: 99.2 cm/sec Ao V2 max: 181.8 cm/sec MV max P.7 mmHg MV P1/2t: 89.1 msec Ao max P.2 mmHg MV V2 mean: 66.2 cm/sec MV dec slope: 326.3 cm/sec2 Ao V2 mean: 128.6 cm/sec MV mean P.0 mmHg Ao mean P.5 mmHg MV V2 VTI: 26.0 cm MVA(P1/2t): 2.5 cm2 Ao V2 VTI: 37.6 cm AV (velocity ratio): 0.68 LV V1 max: 125.1 cm/sec MR max alkes: 636.7 cm/sec TR max aleks: 279.9 cm/sec LV V1 max P.3 mmHg MR max P.2 mmHg TR max P.3 mmHg LV V1 mean P.4 mmHg MR mean aleks: 492.1 cm/sec LV V1 mean: 86.2 cm/sec MR mean P.4 mmHg LV V1 VTI: 25.7 cm MR VTI: 199.9 cm ECHO/Echo Complete Interpretation Summary The estimated ejection fraction is 60 %. No evidence for diastolic dysfunction. The left atrium is mildly enlarged. Mild (1+) mitral valve insufficiency. Ordering Physician: Elder Zarate Performed By: Andreas Miller RCS
--- NOTE | 2024-10-17 16:47 | HP.PCM.HOS_ITS ---
HPI - General General Date of Admission: 10/17/24 HPI Narrative RUBEN BENSON, is a 79 M who presents to the hospital with near syncope and new onset A-fib. He is slow A-fib and was managed with oral meds in the ER. He denies any chest pain or lightheadedness. He did test positive for influenza but he had been sick for several days prior to coming to the ER she is outside the window for Tamiflu. Currently not requiring any oxygen. CT of the brain and chest x-ray were both unremarkable, and TSH was normal, though he is hyponatremic to 126. 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 Given his chads Vascor of 3, he was given the first dose of Eliquis in the ER. [facility] Medical History (Updated 10/17/24 @ 11:[address] Bryon Quijano DO) Afib Acoustic neuroma Arthritis Hypertension Home Medications ?Medication ?Instructions ?Recorded ?Last Taken ?Type glucosamine HCl 500 mg tablet 500 mg PO DAILY 02/18/21 Unknown History multivitamin 1 tab PO DAILY 02/18/21 Unkn own History lisinopril 10 mg tablet 10 mg PO QDAY 10/16/24 Unkno wn History Allergy/AdvReac Type Severity Reaction Status Date / Time Penicillins (PCN) Allergy Shortness Verified 10/17/24 08:54 of breath Social History Smoking Status: Never smoker alcohol intake: current alcohol intake frequency: 3 or more drinks per day ROS Constitutional Constitutional: Denies chills, fatigue, fever(s) or malaise Eyes Eyes: Denies blurry vision ENT HEENT: Denies headache(s) or nasal discharge Cardiovascular Cardiovascular: Reports syncope; Denies chest pain or dyspnea on exertion Respiratory/Chest Respiratory/Chest: Denies cough, shortness of breath at rest or shortness of breath with exertion Gastrointestinal Gastrointestinal: Denies constipation, diarrhea, nausea or vomiting Genitourinary Genitourinary: Denies dysuria Neurologic Neurologic: Denies focal weakness, numbness or tremor(s) Psychiatric Psychiatric: Denies anxiety or depression Vital Signs Vital Signs Vital Signs: 10/17/24 08:51 10/17/24 09:37 10/17/24 10:19 Temperature 98.1 F Temperature Source Temporal Pulse Rate 82 91 Respiratory Rate 16 Respiratory Effort Normal Non-Labored Respiratory Pattern Normal Blood Pressure 134/72 H 125/71 H Blood Pressure Mean 92 89 Pulse Ox 96 95 Oxygen Delivery Method Room Air 10/17/24 11:00 10/17/24 12:00 10/17/24 12:36 Temperature 97.9 F Temperature Source Pulse Rate 90 96 96 Respiratory Rate 16 18 18 Respiratory Effort Respiratory Pattern Blood Pressure 120/73 138/76 H 138/76 H Blood Pressure Mean 85 93 96 Pulse Ox 97 97 97 Oxygen Delivery Method Weight Weight: 146 lb 9.718 oz Body Mass Index (BMI) 22.3 Physical Exam Narrative General: Alert, Oriented x3, Cooperative, No apparent distress HEENT: Atraumatic, PERRLA, EOMI, Normocephalic, hard of hearing Oral: Moist Mucosa Neck: Supple, No JVD Lungs: Diminished, Normal air movement, No rhonchi, No wheeze, No rales Cardiovascular: Irregular rate and rhythm, Normal S1, Normal S2, No murmurs Abdomen: Soft, Non Tender, Non-Distended, No Hepato-splenomegaly Extremities: No edema, Capillary Refill Less than 3 Seconds Skin: No rashes, No breakdown Musculoskeletal: No Tenderness to Palpation of Joints or Extremities Neurological: No focal neurological deficits, Motor Exam 5/5 strength throughout, Sensory exam intact to light touch and pain Psych/Mental Status: Normal Affect, Appropriate Results Lab / Micro Data 10/18/24 05:29 10/18/24 05:29 Labs: Laboratory Results - last 24 hr 10/17/24 09:19: WBC 5.9, RBC 3.84 L, Hgb 13.4, Hct 37.3 L, MCV 97.1 H, MCH 34.9 H, MCHC 35.9, RDW Std Deviation 46.7 H, RDW Coeff of Fran 13.1, Plt Count 196, MPV 10.0, Immature Gran % (Auto) 0.700, Neut % (Auto) 86.4 H, Lymph % (Auto) 5.1 L, [place] % (Auto) 7.5, Eos % (Auto) 0.0, Baso % (Auto) 0.3, Absolute Neuts (auto) 5.1, Absolute Lymphs (auto) 0.30 L, Nucleated RBC % 0, PT 14.3, INR 1.1, APTT 26.0, Sodium 126 L, Potassium 4.2, Chloride 90 L, Carbon Dioxide 21.7, Anion Gap 14, BUN 12, Creatinine 0.95, Estim Creat Clear Calc 84.77, Est GFR (MDRD) Non-Af 80, BUN/Creatinine Ratio 12.3, Glucose 118 H, Calcium 8.9, Magnesium 1.6, T roponin T High Sens 28 H, TSH 2.500 10/17/24 09:35: Ethyl Alcohol < 10.1 10/17/24 12:16: Troponin T Hi Sens 2 Hr 32 H Micro: Microbiology 10/17/24 09:38 Mucosa - Nose SARS-CoV-2, Influenza & RSV (PCR) - Final Influenzae A Imaging Radiology Impression Brain CT 10/17/24 09:14 IMPRESSION: 1. No visible acute intracranial findings. 2. Additional description as above. Reading Location: [id number] Chest X-Ray 10/17/24 10:02 IMPRESSION: No acute cardiopulmonary process. Reading Location: [facility] Assessment & Plan Assessment/Plan (1) Hyponatremia: (2) Influenza A: (3) Atrial fibrillation, new onset: PLAN: Plan 1. New onset A-fib/essential HTN/hyponatremia ? Continue with Cardizem p.o. 60 mg 3 times daily ? Can resume his home lisinopril monitor his blood pressure ? Echo is pending ? Continue with Eliquis as he has a [id number] of 3 ? TSH is normal ? He does admit to drinking beer so this could explain his hyponatremia, he has been hyponatremic in the past though not to this degree. ? Sodium is 126, will repeat in the morning 2. Influenza A ? He is not requiring any oxygen and is fairly asymptomatic at the moment. ? Symptoms started outside the window for Tamiflu DVT: Kary 75 minutes was spent on direct patient care, including documentation as well as chart review and collaboration with colleagues Charges/Coding Visit Charges Inpatient E&M: 41862 Init Hosp L3
[2024-10-17] MEDS: Acetaminophen 500 MG Tablet 1000 MG PO (21:39)
[2024-10-17] MEDS: 0.9% Saline Lock 10 ML Syringe IV (21:40)
[2024-10-18 04:00] VITALS: BP 123/72; PULSE 69; RESP 18; TEMP 37.2; O2SAT 94
[2024-10-18 05:58] LABS: Absolute Lymphocyte Count 0.85 X10^3/uL (0.83-4.51); Absolute Neutrophil Count 3.8 X10^3/uL (2.0-7.7); Basophil# 0.02 X10^3/uL; Basophil% 0.4 % (0-1); Eosinophil# 0.02 X10^3/uL; Eosinophils% 0.4 % (0-5); Lymphocyte # 0.85 X10^3/ul (0.83-4.51); Lymphocyte % 16.7 % (19-41); Mean Corp Hgb Conc 35.1 g/dL (32-36); Mean Corpuscular Hgb 33.3 pg (27.0-32.0); Mean Corpuscular Volume 94.9 fL (80-94); Mean Platelet Vol. 10.4 fl (6.2-12.0); Monocyte# 0.41 X10^3/uL; Monocyte% 8.1 % (0-10); NRBC Flagged by Analyzer 0 % (0-5); Neutrophil # 3.76 X10^3/uL (2.7-7.7); Neutrophil % 73.8 % (47-70); Platelet Count 194 K/mm3 (150-450); RBC Distribution Width CV 13.1 % (11.6-14.6); RBC Distribution Width SD 45.2 fl (35.1-43.9); White Blood Count 5.1 K/mm3 (4.4-11.0)
[2024-10-18] MEDS: dilTIAZem 60 MG Tablet PO (06:23)
[2024-10-18 06:36] LABS: Anion Gap 13 (5-15); BUN 14 mg/dL (4-19); BUN/Creat Ratio 18.9 RATIO (10-20); Calcium,Total 8.6 mg/dL (7.6-11.0); Chloride 92 mmol/L (98-108); Creatinine, Serum 0.76 mg/dL (0.70-1.20); EST Glomerular Filtration Rate 90 (>60); Estimated Creatinine Clearance 68.12 ml/min (50-250); Glucose 97 mg/dL (70-99); Potassium 3.4 mmol/L (3.3-5.1); Sodium Level 126 mmol/L (133-145)
[2024-10-18 10:03] VITALS: BP 101/63; PULSE 80; RESP 16; TEMP 36.2; O2SAT 94
[2024-10-18] MEDS: APIXABAN 5 MG TABLET PO (10:04)
[2024-10-18] MEDS: Lisinopril 10 MG Tablet PO (10:04)
[2024-10-18 10:10] VITALS: O2SAT 94
--- NOTE | 2024-10-18 10:35 | CASEMGMT ---
RN CM Face to Face with patient for initial transition planning/care coordination assessment. RN CM introduced self and role at [facility]. Patient lying in bed, alert and oriented, at bedside. Patient willing to participate in assessment and is able to answer all questions appropriately. Care providers, pharmacy, and demographics verified. Strata: 1 PCP: Tracie Specialists: none Preferred Pharmacy: [facility] Insurance: MCR, [employer] Prescription Benefit: yes Living Will/HPOA: yes, Alfreda White LNOK: Living Arrangements: Patient lives with in a single story home with 1 step and grab bar to enter the home. Transportation: self, DME/HHC: Patient has cane at home. No previous HHC or SNF. Patient wishes to discharge home, denies need for home health at this time. Patient states he has no further needs or concerns at this time. CM to follow for discharge planning needs that may arise. Disposition Plan: Patient to discharge home with family support and follow-up plans in place. Elana MCCORD, RN, CM
[2024-10-18 11:21] VITALS: O2SAT 89; O2SAT 94
--- NOTE | 2024-10-18 13:52 | PCM.DC ---
Discharge Instructions Diet Discharge Diet: Low fat / Low cholesterol DC O2, CPAP, BIPAP needs Home O2 Discharge instructions: No Dressing / Incision Discharge Activity: Return to Normal Activity Dressing / Incision Call your doctor if you observe: Fever of 101 or Higher, Shortness of breath, Dizziness, Fainting spells, Swelling in the ankles, Chest pain and Increased palpitations (irregular heartbeat) Follow Up Care Test Results: Test results from this visit will be discussed in further detail at your follow-up appointment, if applicable. Discharge Plan Admission Admit Date/Time: 10/17/24 12:16 Attending Provider: Elder Zarate Primary Care Provider: Leif Hodges Instructions Patient Instructions: AFib Dc, AFib Preventing Stroke Additional Instructions / Restrictions: Follow-up with your PCP in 3 to 5 days to obtain outpatient lab work to monitor your sodium. As discussed try to increase your p.o. intake and decrease alcohol intake Discharge Orders/Prescriptions Prescriptions: New Eliquis 5 mg Tablet 5 mg PO BID 30 Days Qty: 60 0RF diltiazem HCl [Cartia XT] 120 mg capsule,extended release 24hr 120 mg PO DAILY Qty: 30 0RF Continued multivitamin Tablet 1 tab PO DAILY glucosamine HCl 500 mg tablet 500 mg PO DAILY Rx Instructions: administer with a meal lisinopril 10 mg tablet 10 mg PO QDAY Referrals / Follow Up: Leif Hodges MD [Primary Care Provider] - Within 1 Week Saúl Perez MD [Med Staff - Active Staff] - Within 1 Month Disposition Disposition (needs filled in before D/C Order can be placed): Home, Self Care
[2024-10-18 14:16] VITALS: BP 145/77; PULSE 72; RESP 18; TEMP 36.8; O2SAT 96
--- NOTE | 2024-10-18 15:15 | PHA.DC.MC.R ---
Pharmacy [facility] Service has performed discharge medication reconciliation and counseling for this patient. 1. APIXABAN 5MG PO BID 2. DILTIAZEM XR 120MG PO DAILY The patient's discharge medication list was reviewed for discrepancies and discrepancies were resolved. The patient was counseled on the following discharge medications and changes in medications for homegoing were reviewed. The Reason for Use, instructions for use, and potential side effects were reviewed for all new medications. The patient's questions regarding all of their medications were answered. The patient was able to verbally demonstrate an understanding of their discharge medications. Medications at Discharge Home Medications glucosamine HCl 500 mg tablet 500 mg PO DAILY 02/18/21 multivitamin 1 tab PO DAILY 02/18/21 lisinopril 10 mg tablet 10 mg PO QDAY 10/16/24 apixaban 5 mg tablet (Eliquis) 5 mg PO BID 30 days #60 tabs 10/18/24 diltiazem HCl 120 mg capsule,extended release 24 hr (Cartia XT) 120 mg PO DAILY #30 caps 10/18/24
--- NOTE | 2024-10-18 15:19 | CASEMGMT ---
ELISSA LOWRY NOTE: DC order is in. Rx for Eliquis has been e-scribed to [facility] pharmacy. ELISSA LOWRY placed call to [facility] pharmacy. Per Cheryl, cost for 30-day is $59.76 without the 30-day trial offer card. ELISSA LOWRY to room. Introduced self and role. Discussed Eliquis and importance of taking it. Questions answered. Eliquis 30-day free trial offer card provided to pt and instructed on use. Pt voices understanding. He was made aware w/out the card, cost will be $59.76. He is aware the 30-day trial offer card is a [id number]-lifetime use card. He states he can afford refills if they are only going to be about $60. Made aware, if refills are not affordable, to f/u with PCP. 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 EILSSA LOWRY informed him that he will need to pick them up today, as the Eliquis is a 2 x/day Rx. He voices understanding. He states his will be taking him home and they can stop today to get the medications. Pt aware to f/u w/PCP to have labs/Na+ re-checked. Pt denies having any further questions and denies discharge concerns/needs. Home O2 testing has been completed. Pt does not qualify for home O2. [employer] BSN ELISSA LOWRY
--- NOTE | 2024-10-18 16:16 | DS.PCM_ITS ---
Providers Date of Admission: 10/17/24 Primary Care Physician: Dr. Leif Hodges MD Reason For Visit: AFIB, SYNCOPE, HYPONATREMIA Diagnosis Discharge Diagnosis (1) Hyponatremia: Status: Acute Code(s): E87.1 - Hypo-osmolality and hyponatremia (2) Influenza A: Status: Acute Code(s): J10.1 - Influenza due to other identified influenza virus with other respiratory manifestations (3) Atrial fibrillation, new onset: Status: Acute Code(s): I48.91 - Unspecified atrial fibrillation Medications at Discharge Home Medications glucosamine HCl 500 mg tablet 500 mg PO DAILY 02/18/21 multivitamin 1 tab PO DAILY 02/18/21 lisinopril 10 mg tablet 10 mg PO QDAY 10/16/24 apixaban 5 mg tablet (Eliquis) 5 mg PO BID 30 days #60 tabs 10/18/24 diltiazem HCl 120 mg capsule,extended release 24 hr (Cartia XT) 120 mg PO DAILY #30 caps 10/18/24 Hospital Course Operations None Procedures 2-D Echocardiogram Summary of Care Provided Minutes Spent on Discharge: 32 Hospital Course: Per HPI: RUBEN EBNSON, is a 79 M who presents to the hospital with near syncope and new onset A-fib. He is slow A-fib and was managed with oral meds in the ER. He denies any chest pain or lightheadedness. He did test positive for influenza but he had been sick for several days prior to coming to the ER she is outside the window for Tamiflu. Currently not requiring any oxygen. CT of the brain and chest x-ray were both unremarkable, and TSH was normal, though he is hyponatremic to 126. 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 Given his chads Vascor of 3, he was given the first dose of Eliquis in the ER. Hospital Course: 1. New onset A-fib/essential HTN/hyponatremia/influenza A?79-year-old male presented to the hospital for near syncope and new onset A-fib. He did reverted to normal sinus rhythm fairly quickly with just oral doses of Cardizem. Echocardiogram was unremarkable with no diastolic dysfunction and normal EF therefore he was continued on Cardizem as well as Eliquis as his [id number] score was 3. He only takes lisinopril at home at baseline which we will continue on discharge but will also add Cardizem at 120 mg p.o. daily. Part of his issue with hyponatremia that he has not had much of an appetite over the last couple of days because of the influenza though he says that it feels he is coming back. He also drinks 4-5 beers every night so I discussed with him the need to increase his p.o. intake and decrease his alcohol intake. I discussed with him the possibility of going home versus staying 1 more day however he would prefer to go home and follow-up with his primary care doctor as an outpatient to monitor his sodium. He expressed understanding of the risks and benefits of discharge and would still like to go today. He did have walking pulse ox today and he maintain oxygen saturations greater than 89% on room air. Symptoms for his flu started on Tuesday so he was outside the window for Tamiflu by the time of admission. Remains on room air at rest. PT/OT have also been consulted to work with him and did not feel that he needed placement at this time, he does have bilateral knee arthritis which is not seem to be affecting his mobility at the moment. Given his new onset A-fib I do recommend outpatient follow-up with cardiology. I did discuss the risks and benefits of Eliquis with both the patient and his son on the day of admission. Physical Exam Narrative General: Alert, Oriented x3, Cooperative, No apparent distress HEENT: Atraumatic, PERRLA, EOMI, Normocephalic, hard of hearing Oral: Moist Mucosa Neck: Supple, No JVD Lungs: Diminished, Normal air movement, No rhonchi, No wheeze, No rales Cardiovascular: Regular rate and rhythm, Normal S1, Normal S2, No murmurs Abdomen: Soft, Non Tender, Non-Distended, No Hepato-splenomegaly Extremities: No edema, Capillary Refill Less than 3 Seconds Skin: No rashes, No breakdown Musculoskeletal: No Tenderness to Palpation of Joints or Extremities Neurological: No focal neurological deficits, Motor Exam 5/5 strength throughout, Sensory exam intact to light touch and pain Psych/Mental Status: Normal Affect, Appropriate Weight / BMI Weight Weight: 146 lb 9.718 oz Body Mass Index (BMI) 22.3 ABG / Lab / Microbiology Data 10/18/24 05:29 10/18/24 05:29 Laboratory: Laboratory Results - last 24 hr 10/18/24 05:29: WBC 5.1, RBC 3.90 L, Hgb 13.0, Hct 37.0 L, MCV 94.9 H, MCH 33.3 H, MCHC 35.1, RDW Std Deviation 45.2 H, RDW Coeff of Fran 13.1, Plt Count 194, MPV 10.4, Immature Gran % (Auto) 0.600, Neut % (Auto) 73.8 H, Lymph % (Auto) 16.7 L, [place] % (Auto) 8.1, Eos % (Auto) 0.4, Baso % (Auto) 0.4, Absolute Neuts (auto) 3.8, Absolute Lymphs (auto) 0.85, Nucleated RBC % 0, Sodium 126 L, Potassium 3.4, Chloride 92 L, Carbon Dioxide 21.0, Anion Gap 13, BUN 14, Creatinine 0.76, Estim Creat Clear Calc 68.12, Est GFR (MDRD) Non-Af 90, BUN/Creatinine Ratio 18.9, Glucose 97, Calcium 8.6 Microbiology: Microbiology 10/17/24 09:38 Mucosa - Nose SARS-CoV-2, Influenza & RSV (PCR) - Final Influenzae A Radiography Diagnostic Testing: Radiology Impression Echocardiogram 10/17/24 14:37 Interpretation Summary The estimated ejection fraction is 60 %. No evidence for diastolic dysfunction. The left atrium is mildly enlarged. Mild (1+) mitral valve insufficiency. Ordering Physician: Elder Zarate Performed By: Andreas Miller RCS D/C Instructions Discharge Diet: Low fat / Low cholesterol Call your doctor if you observe: Fever of 101 or Higher, Shortness of breath, Dizziness, Fainting spells, Swelling in the ankles, Chest pain and Increased palpitations (irregular heartbeat) DC O2, CPAP, BIPAP Needs Home O2 Discharge instructions: No Meaningful Use Info Meaningful Use Meaningful Use Diagnoses (Choose all that apply): None applicable Ischemic Stroke Statin Dosing Therapy Reference: STATIN DOSE THERAPY REFERENCE: * Patients > 75 years receive moderate or high dose statin therapy. * Patients 75 years or YOUNGER should receive HIGH intensity statin dose unless contraindicated. You will be required to document reason for non-treatment if statin daily dose does not meet guidelines. HIGH DOSE STATIN THERAPY DAILY Atorvastatin > than or = to 40 mg Rosuvastatin > than or = to 20 mg Amlodipine + Atorvastatin > than or = to 2.5/40 mg Ezetimibe + Simvastatin 10/80 mg Simvastatin 80mg Discharge Plan Admission Admit Date/Time: 10/17/24 12:16 Attending Provider: Elder Zarate Primary Care Provider: Leif Hodges Instructions Patient Instructions: AFib Dc, AFib Preventing Stroke Additional Instructions / Restrictions: Follow-up with your PCP in 3 to 5 days to obtain outpatient lab work to monitor your sodium. As discussed try to increase your p.o. intake and decrease alcohol intake Discharge Orders/Prescriptions Prescriptions: New Eliquis 5 mg Tablet 5 mg PO BID 30 Days Qty: 60 0RF diltiazem HCl [Cartia XT] 120 mg capsule,extended release 24hr 120 mg PO DAILY Qty: 30 0RF Continued multivitamin Tablet 1 tab PO DAILY glucosamine HCl 500 mg tablet 500 mg PO DAILY Rx Instructions: administer with a meal lisinopril 10 mg tablet 10 mg PO QDAY Referrals / Follow Up: Leif Hodges MD [Primary Care Provider] - Within 1 Week Saúl Perez MD [Med Staff - Active Staff] - Within 1 Month Disposition Disposition (needs filled in before D/C Order can be placed): Home, Self Care Charges/Coding Visit Charges Inpatient E&M: 92237 Disch Hosp >30min
== END 2024-10-18 16:51 | disposition home or self-care (01) | DRG 309 ==
LOC: ED 11:30 → PCU 12:42
PROVIDERS: Admitting Provider Family Medicine; Emergency Provider Emergency Medicine; PCP Family Medicine; Visit Provider Family Medicine
DX: I48.91 Unspecified atrial fibrillation (principal); E87.1 Hypo-osmolality and hyponatremia; I10 Essential (primary) hypertension; F10.129 Alcohol abuse with intoxication, unspecified; D33.3 Benign neoplasm of cranial nerves; K52.9 Noninfective gastroenteritis and colitis, unspecified; J10.1 Influenza due to other identified influenza virus with other respiratory manifestations; I49.9 Cardiac arrhythmia, unspecified; M17.0 Bilateral primary osteoarthritis of knee; Z79.01 Long term (current) use of anticoagulants; Z20.828 Contact with and (suspected) exposure to other viral communicable diseases; Y90.0 Blood alcohol level of less than 20 mg/100 ml; Z79.899 Other long term (current) drug therapy
CPT/HCPCS: 36415; 70450; 71045; 80048; 82077; 83735; 84443; 84484; 85025; 85610; 85730; 87631; 93005; 93306; 97162; 99285; Q9957; A4216

== ENCOUNTER → 2024-10-25 | Outpatient (CLI) | payer MEDICARE, OTHER, SELFPAY ==
[2024-10-25 16:36] LABS: Anion Gap 10 (5-15); BUN 12 mg/dL (4-19); BUN/Creat Ratio 15.8 RATIO (10-20); Chloride 101 mmol/L (98-108); Creatinine, Serum 0.74 mg/dL (0.70-1.20); EST Glomerular Filtration Rate 91 (>60); Glucose 96 mg/dL (70-99); Potassium 4.4 mmol/L (3.3-5.1); Sodium Level 136 mmol/L (133-145)
== END | disposition home or self-care (01) ==
LOC: MFPLAB 11:44
PROVIDERS: PCP Family Medicine; Referring Provider Family Medicine; Visit Provider Family Medicine
DX: E87.1 Hypo-osmolality and hyponatremia (principal)
CPT/HCPCS: 36415; 80048

== ENCOUNTER → 2025-02-13 | Outpatient (CLI) | payer MEDICARE, OTHER, SELFPAY ==
[2025-02-13 12:46] LABS: Hematocrit 29.5 % (40-54); Hemoglobin 10.4 g/dL (13.0-16.5); Immature Granulocytes Count 0.010 X10^3/uL (0.0-0.0); Mean Corp Hgb Conc 35.3 g/dL (32-36); Mean Corpuscular Volume 99.7 fL (80-94); Mean Platelet Vol. 11.2 fl (6.2-12.0); NRBC Flagged by Analyzer 0 % (0-5); Platelet Count 254 K/mm3 (150-450); RBC Distribution Width CV 13.2 % (11.6-14.6); RBC Distribution Width SD 47.1 fl (35.1-43.9); Red Blood Count 2.96 M/mm3 (4.6-6.2); White Blood Count 5.4 K/mm3 (4.4-11.0)
[2025-02-13 14:09] LABS: AST(SGOT) 14 U/L (<=37); Alanine Aminotransfer ALT/SGPT 12 U/L (<=46); Albumin, Serum 4.0 g/dL (3.4-4.8); Alkaline Phosphatase 65 U/L (40-129); Anion Gap 11 (5-15); BUN 11 mg/dL (4-19); BUN/Creat Ratio 15.4 RATIO (10-20); Calcium,Total 9.0 mg/dL (7.6-11.0); Carbon Dioxide 22.2 mmol/L (21.0-32.0); Chloride 100 mmol/L (98-108); Cholesterol 175 mg/dL (<=200); Globulin 2.4 g/dL (2.2-4.2); Glucose 87 mg/dL (70-99); Low Density Lipoprotein Calc. 96 mg/dL; Potassium 4.2 mmol/L (3.3-5.1); Triglycerides 34 mg/dL; Very Low Density Lipoprotein 7 mg/dL (5-40); cholesterol:hdl ratio screen 2.41
[2025-02-13 14:19] LABS: FOLATES,SERUM (FOLIC ACID) 27.20 ng/mL (4.60-34.80)
[2025-02-13 14:42] LABS: Ferritin 79 ng/mL (37-417); Vitamin B12 2436 pg/mL (180-914); Vitamin D,25 Hydroxy 66.1 ng/mL (30-100)
[2025-02-13 14:56] LABS: Magnesium 1.6 mg/dL (1.5-2.2)
[2025-02-13 15:09] LABS: Iron 90 ug/dL (65-175); Iron Binding Capacity,Total 315 ug/dL (250-450); Iron Binding Capacity,Unsat 225 ug/dL (228-428)
== END | disposition home or self-care (01) ==
LOC: MFPLAB 10:12
PROVIDERS: PCP Family Medicine; Referring Provider Family Medicine; Visit Provider Family Medicine
DX: D64.9 Anemia, unspecified (principal); E55.9 Vitamin D deficiency, unspecified; I10 Essential (primary) hypertension
CPT/HCPCS: 36415; 80053; 80061; 81001; 82306; 82607; 82728; 82746; 83540; 83550; 83735; 85025